=== PATIENT | female | born 1960 | race Caucasian/White ===

== ENCOUNTER 2020-06-10 03:18 | Emergency (ER) | payer MEDICARE, OTHER ==
[2020-06-10] MEDS ORDERED: CLEOCIN HCL150 MG PO (04:15)
== END 2020-06-10 04:20 | disposition home or self-care (01) ==
LOC: ER1 03:18
DX: K04.7 Periapical abscess without sinus (principal); E11.9 Type 2 diabetes mellitus without complications; Z90.49 Acquired absence of other specified parts of digestive tract; Z90.89 Acquired absence of other organs; Z90.710 Acquired absence of both cervix and uterus; Z88.0 Allergy status to penicillin; Z88.1 Allergy status to other antibiotic agents; Z88.5 Allergy status to narcotic agent; Z88.8 Allergy status to other drugs, medicaments and biological substances; Z79.01 Long term (current) use of anticoagulants
CPT/HCPCS: 99282

== ENCOUNTER → 2020-09-05 | Outpatient (CLI) | payer MEDICARE ==
[~2020-09-05] MED LIST: CLEOCIN HCL150 MG PO
== END ==
LOC: RAD 10:37
DX: M25.572 Pain in left ankle and joints of left foot (principal); M25.472 Effusion, left ankle; R60.0 Localized edema
CPT/HCPCS: 73600